=== PATIENT | male | born 1945 | race Caucasian/White ===

== ENCOUNTER 2023-09-01 09:11 | Emergency (ER) | payer MEDICARE, OTHER, SELFPAY ==
[2023-09-01 09:14] VITALS: BP 146/65
--- NOTE | 2023-09-01 09:33 | ED.GENMED ---
History of Present Illness
General
Chief Complaint: Skin Problem
Source: patient and spouse
Exam Limitations: none
Time Seen by Provider: 09/01/23 09:19
Travel History
Have you had any contact with someone who has COVID-19?: No
Do you have any symptoms of coronavirus? Fever > 100 degrees, chills, cough, shortness of breath, sore throat, loss of taste or smell, muscle aches, or headache?: No
History of Present Illness
History of Present Illness:
4 to 5 days of progressive left buttock pain. Feels that abscess is developing. History of same. Multiple I&D's in the past
Past History
Past History
ED Past Medical History: CAD, CHF, COPD, HTN and Other (PAD)
ED Past Surgical History: Cardiac and Other (Agree with documented surgery)
Social History
Tobacco: Former smoker
Alcohol: Occasional
Drug: None
Personal:
Living: with family
Employment: Retired
Family History
Family History: Negative Diabetes, Hypertension or CAD
Review of Systems
Review of Systems
All Other Systems: Not applicable
Phy Exam
Physical Exam
Physical Exam:
GENERAL: Alert and oriented in no apparent distress, mildly tachypneic with movement
LUNGS: Mildly tachypneic with movement
ABDOMEN: Soft, without focal tenderness or distention
NEUROLOGICAL: Alert and oriented , grossly non-focal
SKIN: Warm and dry, large moderately deep abscess to the left buttock. Approximately 15 cm x 10 cm some superficial erythema.
PSYCH: Normal and appropriate interaction.
Course
Orders/Labs/Results
Orders:
Orders
09/01/23 09:53
Doxycycline [Vibramycin] 100 mg PO NOW STA
09/01/23 09:57
Wound Culture [Wound/Abscess/Other Culture] Urgent
JENNIFER Source: Abscess
Specimen Description:
Date Specimen was Collected: 09/01/23
Time Specimen was Collected: 09:56
Vital Signs
Initial and Last Documented VS:
Initial Vital Signs
Temp Pulse Resp BP Pulse Ox
97.6 F 82 18 146/65 97
09/01/23 09:14 09/01/23 09:14 09/01/23 09:14 09/01/23 09:14 09/01/23 09:14
Last Documented Vital Signs
Temp Pulse Resp BP Pulse Ox
97.6 F 82 18 146/65 97
09/01/23 09:14 09/01/23 09:14 09/01/23 09:14 09/01/23 09:14 09/01/23 09:14
Procedures
Incision/Drainage/Joint Aspiration
Left Buttock:
Anethesia: 1% Lidocaine with Epi
Type of procedure: drain
Nature of site: abscess
Description of abscess: greater than 3cm
Loculations broken up: Yes
How much fluid was obtained?: large amount
Fluid description: purulent and blood tinged
Treatment: left open for drainage, packed with gauze and antibiotics started
*Critical Care Note
Total Time (30-74mins, 75-104mins- exclusive of procedures): Not Applicable
Update Note
Update Note:
Patient has some shortness of breath noted although he has no complaints of his shortness of breath. He apparently has end-stage renal disease and is on hospice. Will not pursue that at this time. Patient basically wants the abscess drained and
to be discharged
ED Attending Note
-
Portions of this chart may have been created with voice recognition software.� Occasional wrong word or��sound alike� substitutions may have occurred due to the inherent limitations of voice recognition software.
Discharge Plan
Departure
Patient Disposition: Home (Routine Discharge)
Date of Disposition: 09/01/23
Time of Disposition: 09:52
Patient with high blood pressure during this ER visit?: Yes
Discharge Problem:
Left buttock abscess
Instructions: BLOOD PRESSURE, Skin Abscess
Prescriptions:
New
doxycycline hyclate 100 mg capsule
100 mg PO BID 7 Days Qty: 14 0RF
No Action
montelukast 10 MG tablet
10 mg PO DAILY
clopidogrel 75 MG tablet
75 mg PO QPM
trazodone 100 MG tablet
100 mg PO HS
aspirin 81 MG tablet,delayed release (DR/EC)
81 mg PO DAILY 0RF
budesonide 0.5 MG/2 ML suspension for nebulization
0.5 mg inhalation R BID
docusate sodium 100 MG capsule
100 mg PO QPM
albuterol sulfate [ProAir HFA] 8.5 GM HFA aerosol inhaler
2 puff inhalation R Q4HPRN PRN (Reason: SOB)
formoterol fumarate [Perforomist] 20 MCG/2 ML solution for nebulization
20 mcg inhalation R BID
hydralazine 100 mg tablet
100 mg PO TID
rosuvastatin 10 mg tablet
10 mg PO HS
guaifenesin 600 mg Tablet Extended Release 12hr
600 mg PO DAILY
carvedilol 12.5 mg Tablet
25 mg PO BID 30 Days Qty: 120 0RF
famotidine 20 mg Tablet
20 mg PO BID
isosorbide mononitrate 30 MG tablet extended release 24 hr
30 mg PO DAILY
amlodipine 10 mg tablet
10 mg PO DAILY
furosemide [Lasix] 40 mg tablet
40 mg PO DAILY Qty: 30 0RF
cefdinir 300 mg Capsule
300 mg PO DAILY 4 Days Qty: 4 0RF
acetaminophen [Acetaminophen Pain Relief] 500 mg tablet
1,000 mg PO QID Qty: 120 0RF
oxycodone 5 mg tablet
5 mg PO BID PRN (Reason: Pain) Qty: 20 0RF
sodium bicarbonate 650 mg tablet
1,300 mg PO TID Qty: 150 0RF
Activity Restrictions/Additional Instructions:
Packing removal in 2 to 3 days
Interventions
Interventions:
*General Assessment Last Done: 09/01/23 09:14
ED- Fall Risk Assessment Last Done: 09/01/23 09:34
*ED COVID-19 Vaccine History Last Done: 09/01/23 09:14
ED-Skin Assessment Last Done: 09/01/23 09:34
--- NOTE | 2023-09-01 09:33 | EDRN ---
Dr. Jones in to see pt post pt done in [place]. Pt changed and on side on stretcher at this time.
[2023-09-01] MEDS: VIBRAMYCIN 100 MG PO (10:06)
[2023-09-01 10:15] VITALS: BP 153/62
--- NOTE | 2023-09-01 10:24 | EDRN ---
Addendum entered by Marj Goins RN 09/01/23 10:25:
checed prior to discharge at 10:15.
Original Note:
Pt states pain was 9-10/10 on L buttock and now a 2-3/10 post I&D of abscess.
== END 2023-09-01 10:20 | disposition home or self-care (01) ==
LOC: EMR 09:11
PROVIDERS: EMERGENCY PHYSICIAN Emergency Medicine; FAMILY PHYSICIAN Family Medicine
DX: L02.31 Cutaneous abscess of buttock (principal); I25.10 Atherosclerotic heart disease of native coronary artery without angina pectoris; I13.2 Hypertensive heart and chronic kidney disease with heart failure and with stage 5 chronic kidney disease, or end stage renal disease; N18.6 End stage renal disease; I50.9 Heart failure, unspecified; J44.9 Chronic obstructive pulmonary disease, unspecified; Z87.891 Personal history of nicotine dependence
CPT/HCPCS: 99283; 10060; 87070; 87147; 87205

== ENCOUNTER 2023-09-15 07:00 | Emergency (ER) | payer MEDICARE, OTHER, SELFPAY ==
[2023-09-15 07:04] VITALS: BP 143/60
--- NOTE | 2023-09-15 08:12 | ED.GENMED ---
History of Present Illness
General
Chief Complaint: Skin Problem
Source: patient and spouse
Time Seen by Provider: 09/15/23 07:49
Travel History
Have you had any contact with someone who has COVID-19?: No
Do you have any symptoms of coronavirus? Fever > 100 degrees, chills, cough, shortness of breath, sore throat, loss of taste or smell, muscle aches, or headache?: No
History of Present Illness
History of Present Illness:
78-year-old male with extensive cardiopulmonary past medical history, CKD, on hospice presenting to the emergency department for evaluation of recurring abscess to the left buttock that he states started to get a little bit larger over the last 2 to
3 days. He notes that about 3 weeks ago he had a similar abscess drained on the left buttock and completed a course of doxycycline which she states he did finish the entire thing but notes recurrence of symptoms. He denies any fevers, chills,
rigors. No known history of diabetes. States he has had multiple similar abscesses in the past requiring incision and drainage.
Past History
Past History
ED Past Medical History: CAD, CHF, COPD, HTN, Renal failure and Other (PAD)
ED Past Surgical History: Cardiac, Orthopedic and Other (Agree with documented surgery)
Social History
Tobacco: Former smoker
Alcohol: Occasional
Drug: None
Personal:
Living: with family
Employment: Retired
Family History
Family History: Negative Diabetes, Hypertension or CAD
Review of Systems
Review of Systems
All Other Systems: ROS reviewed and negative except as documented in HPI and ROS
Phy Exam
Physical Exam
Physical Exam:
GENERAL: Alert , in no apparent distress
EYE: conjunctiva clear
Head: Normocephalic atraumatic
NECK: Supple,
ENT: mmm.
LUNGS: no acute respiratory distress
NEUROLOGICAL: Alert and oriented
SKIN: Warm and dry, approximate 2 cm abscess to the left medial buttock but does not extend into the rectum. There is minimal surrounding erythema. Moderate fluctuance with minimal induration. Previous incision from a few weeks ago is proximal to
this and appears well-healed and without any surrounding induration or erythema.
MUSCULOSKELETAL: well perfused.
PSYCH: Normal and appropriate interaction.
Scores
Heart Failure Risk
Heart Failure Risk Score: Not Applicable
Heart Score for Chest Pain Patients
STEMI patient?: Not applicable
Withdrawal Assessment of Alcohol
Withdrawal Assessment Completed?: Not applicable
Course
Vital Signs
Initial and Last Documented VS:
Initial Vital Signs
Temp Pulse Resp BP Pulse Ox
97.5 F 74 17 143/60 98
09/15/23 07:04 09/15/23 07:04 09/15/23 07:04 09/15/23 07:04 09/15/23 07:04
Last Documented Vital Signs
Temp Pulse Resp BP Pulse Ox
97.5 F 74 17 143/60 98
09/15/23 07:04 09/15/23 07:04 09/15/23 07:04 09/15/23 07:04 09/15/23 07:04
Procedures
Incision/Drainage/Joint Aspiration
Left Lower Buttock:
Anethesia: 1% Lidocaine
Preparation: cleaned with Betadine
Type of procedure: incise
Nature of site: abscess
Description of abscess: less than 3cm
Loculations broken up: No
How much fluid was obtained?: large amount
Fluid description: purulent
Treatment: left open for drainage
MDM/Problems Addressed
Differential Diagnosis Includes:
Abscess, cellulitis, fistula
MDM/Problems Addressed:
78-year-old male present emergency department for evaluation of a left buttock abscess that has been recurrent over the course of 5 years or so. Last drainage 3 weeks ago. Completed course of doxycycline. A culture had been done which grew
coagulase-negative staph. Incision and drainage as above. Will restart doxycycline. Wanted to avoid clindamycin due to patient being on multiple antibiotics in the past and risk for C. difficile as well as avoiding Bactrim due to patient's
history of chronic kidney disease. Advise close follow-up with primary care provider. Discussed warm compresses/shower to keep the area clean. Aware of return patient's.
*Pulse Oximetry
Patient hypoxic: no
*Critical Care Note
Total Time (30-74mins, 75-104mins- exclusive of procedures): Not Applicable
Data Reviewed
Review of Other/Old Records Reveals: Labs and Records
Source: patient, records and spouse
ED Attending Note
-
Portions of this chart may have been created with voice recognition software.� Occasional wrong word or��sound alike� substitutions may have occurred due to the inherent limitations of voice recognition software.
Discharge Plan
Departure
Patient Disposition: Home (Routine Discharge)
Date of Disposition: 09/15/23
Time of Disposition: 08:12
Patient with high blood pressure during this ER visit?: Yes
Discharge Problem:
Abscess of buttock, left
Instructions: Skin Abscess
Prescriptions:
New
doxycycline hyclate 100 mg tablet
100 mg PO BID 7 Days Qty: 14 0RF
No Action
montelukast 10 MG tablet
10 mg PO DAILY
clopidogrel 75 MG tablet
75 mg PO QPM
trazodone 100 MG tablet
100 mg PO HS
aspirin 81 MG tablet,delayed release (DR/EC)
81 mg PO DAILY 0RF
budesonide 0.5 MG/2 ML suspension for nebulization
0.5 mg inhalation R BID
docusate sodium 100 MG capsule
100 mg PO QPM
albuterol sulfate [ProAir HFA] 8.5 GM HFA aerosol inhaler
2 puff inhalation R Q4HPRN PRN (Reason: SOB)
formoterol fumarate [Perforomist] 20 MCG/2 ML solution for nebulization
20 mcg inhalation R BID
hydralazine 100 mg tablet
100 mg PO TID
rosuvastatin 10 mg tablet
10 mg PO HS
guaifenesin 600 mg Tablet Extended Release 12hr
600 mg PO DAILY
carvedilol 12.5 mg Tablet
25 mg PO BID 30 Days Qty: 120 0RF
famotidine 20 mg Tablet
20 mg PO BID
isosorbide mononitrate 30 MG tablet extended release 24 hr
30 mg PO DAILY
amlodipine 10 mg tablet
10 mg PO DAILY
furosemide [Lasix] 40 mg tablet
40 mg PO DAILY Qty: 30 0RF
cefdinir 300 mg Capsule
300 mg PO DAILY 4 Days Qty: 4 0RF
acetaminophen [Acetaminophen Pain Relief] 500 mg tablet
1,000 mg PO QID Qty: 120 0RF
oxycodone 5 mg tablet
5 mg PO BID PRN (Reason: Pain) Qty: 20 0RF
sodium bicarbonate 650 mg tablet
1,300 mg PO TID Qty: 150 0RF
doxycycline hyclate 100 mg capsule
100 mg PO BID 7 Days Qty: 14 0RF
Referrals:
Angel Winston MD [Family Provider] -
Interventions
Interventions:
*Risk Screen - Suicide Last Done: 09/15/23 07:05
*General Assessment Last Done: 09/15/23 07:05
*Neglect/Abuse Screening Last Done: 09/15/23 07:05
*ED COVID-19 Vaccine History Last Done: 09/15/23 07:05
ED-Skin Assessment Last Done: 09/15/23 07:58
== END 2023-09-15 08:28 | disposition home or self-care (01) ==
LOC: EMR 07:00
PROVIDERS: EMERGENCY PHYSICIAN Emergency Medicine; FAMILY PHYSICIAN Family Medicine
DX: L02.31 Cutaneous abscess of buttock (principal); N18.9 Chronic kidney disease, unspecified; R03.0 Elevated blood-pressure reading, without diagnosis of hypertension; Z87.891 Personal history of nicotine dependence
CPT/HCPCS: 99283; 10060